=== PATIENT | male | born 1955 | race Caucasian/White ===

== ENCOUNTER 2024-02-17 16:35 | Inpatient (IN) | payer MEDICARE, MEDICAID ==
[~2024-02-17] VITALS: Ht 170.2 cm; Wt 129.6 kg
[2024-02-17] VITALS (15 sets, daily range): BP systolic 127–152; BP diastolic 58–117
--- NOTE | 2024-02-17 16:35 | NUR ---
PATIENT TO ER ROOM 3 WITH STEADY GAIT.
[2024-02-17 17:07] LABS: BASO% 0.6 % (0-3); HEMATOCRIT 36.5 % (39.0-50.0); HEMOGLOBIN 10.9 g/dl (14.0-18.0); IMMATURE GRANULOCYTES 0.6 % (0.0-5.0); LYMPH% 30.6 % (15-41); MEAN CELL VOLUME 94.6 fL CALC (80.0-100.0); MEAN CORPUSCULAR HGB 28.2 pG CALC (26.0-32.0); MEAN CORPUSCULAR HGB CONC 29.9 g/dL CAL (32.0-36.0); MONO% 10.1 % (2-13); NEUT# 4.76 thou/uL (1.82-7.42); NEUT% 55.1 % (42-76); RED BLOOD COUNT 3.86 mill/uL (4.70-6.10); RED CELL DISTRI WIDTH 15.2 % (11.5-15.5)
[2024-02-17 17:19] LABS: ALBUMIN 4.1 g/dL (3.2-5.0); ALKALINE PHOSPHATASE 69 u/l (38-126); ANION GAP 11 (6-22 (CALC)); BILIRUBIN, TOTAL 0.4 mg/dL (0.2-1.3); BUN 49 mg/dL (8-23); BUN/CREATININE RATIO 20 (12-20 (CALC)); CARBON DIOXIDE 26 mmol/l (22-30); CHLORIDE 104 mmol/l (95-108); CREATININE 2.4 mg/dL (0.7-1.3); ESTIMATED GFR 29 ML/MIN (>=90 (CALC)); POTASSIUM 4.3 mmol/l (3.5-5.1); SGOT/AST 30 u/l (19-48); SODIUM 136 mmol/l (137-146); TOTAL PROTEIN 7.8 g/dL (6.3-8.2)
[2024-02-17 17:24] LABS: INTERNATIONAL NORMALIZED RATIO 1.1 RATIO (0.7-1.3); PROTHROMBIN TIME 10.8 SECONDS (9.0-12.5)
--- NOTE | 2024-02-17 17:50 | NUR ---
PT RESTING WITH MONITOR IN PLACE. PT IN NO ACUTE DISTRESS. PT DENIES ANY NEEDS AT THIS TIME. PLAN OF CARE DISCUSSED WITH PT .
[2024-02-17] MEDS ORDERED: FUROSEMIDE 40 MG/4 ML SDV IV ONE (18:35)
--- NOTE | 2024-02-17 19:01 | NUR ---
PT RESTING WITH MONITOR IN PLACE. PT REMAINS STABLE , DENIES CHANGE IN STATUS. REPORT TO [facility].
[2024-02-17] MEDS ORDERED: ACETAMINOPHEN 325 MG/TAB PO PRN (19:30)
[2024-02-17] MEDS ORDERED: AZITHROMYCIN 500 MG in SODIUM CHLORIDE 0.9% 250 ML IV SCH (19:30)
[2024-02-17] MEDS ORDERED: MAGNESIUM HYDROXIDE 30 ML UDC PO PRN (19:30)
[2024-02-17] MEDS ORDERED: INSULIN DETEMIR 100 UNITS/ML SC SCH (21:00)
[2024-02-17] MEDS ORDERED: INSULIN LISPRO 100 UNITS/ML ML SC SCH (21:00)
[2024-02-17] MEDS ORDERED: methylPREDNISolone Sod Succ 40 MG/ML SDV IV SCH (21:00)
--- NOTE | 2024-02-17 21:50 | NUR ---
REPORT GIVEN TO LOYDA RN AND PT AWAITING TRANSPORT TO [facility]. CALL LIGHT WITHIN REACH AND PT HAS NO NEEDS OR CONCERNS.
[2024-02-17] MEDS ORDERED: Heparin SODIUM (Porcine) 5,000 UNITS/ML SDV SC SCH (22:00)
--- NOTE | 2024-02-17 22:05 | NUR ---
PT TRANSPORTED TO [facility] AT THIS TIME VIA WHEELCHAIR AT THIS TIME.
--- NOTE | 2024-02-17 22:24 | NUR ---
PT ARRIVED TO [facility] ROOM 273 VIA WHEELCHAIR NO DISTRESS NOTED ON ASSESSMENT. IV SITE FLUSHED AND ABX STARTED. PT HAS A COUGH PRODUCTIVE SMALL AMOUNT OF WHITE THICK SPUTUM LUNGS CLEAR. VS WNL ON NC 2L WHICH IS HIS HOME O2. PT HAS A DISTENDED FIRM ABD. BLE EDEMA SLIGHTLY RED WITH SCABS WORST ON THE RIGHT. PT STATED THIS HAS BEEN GOING ON FOR SEVERAL MONTHS. PT STATED THAT HE WAS SEEN AT THE [facility] BUT THAT HE LEFT AMA SINCE HE FELT HE WASN'T GETTING ANY BETTER WITH THE TREATMENT HE WAS RECEIVING. PT ABLE TO AMBULATE WITHOUT ASSISTANCE BUT STATED HE HAD A FALL IN THE LAST THREE MONTHS DUE TO TRIPPING. NURSE EXPLAINED TO BED THE NEED TO HAVE A BED ALARM AND EXTREA PRECAUTIONS TO PREVENT FALLS. PT REFUSED FOR A BED ALARM TO BE USED. CALL LIGHT WITHIN REACH. PT STATED UNDERSTANDING ON HOW TO USE IT. HEART MONITOR ON SR 61. PLAN OF CARE ONGOING.
[2024-02-17] MEDS ORDERED: IPRATROPIUM-Albuterol 0.5MG-2.5MG/3 ML NEB SCH (23:00)
[2024-02-17] MEDS ORDERED: FUROSEMIDE 40 MG/4 ML SDV ONE (23:21)
[2024-02-17] MEDS ORDERED: FUROSEMIDE 40 MG/4 ML SDV IV SCH (23:30)
--- NOTE | 2024-02-18 01:20 | NUR ---
PT AMBULATING IN ROOM NURSE PROVIDED TYLENOL PER PT REQUEST. CALL LIGHT WITHIN REACH. PLAN OF CARE ONGOING.
--- NOTE | 2024-02-18 04:00 | NUR ---
PT SITTING ON SIDE OF BED. ASKED NURSE TO ADD EXTENSION TO O2 TUBING. PT ASK TO REMOVE HEART MONITOR. NURSE EDUCATED PT ON THE IMPORTANCE OF KEEP IT ON. PT STATED UNDERSTANDING. CALL LIGHT WITHIN REACH. PLAN OF CARE ONGOING. GAVE SNACKS AND ORAL FLUIDS.
[2024-02-18 04:06] VITALS: BP 126/49
--- NOTE | 2024-02-18 04:35 | NUR ---
PT STATED HE DOES NOT WANT TO KEEP HIS TELE MONITOR ON. PT WAS EDUCATED AND ENCOURAGED TO KEEP IT ON. PT STILL REFUSED. RN NOTIFED. ER NOTIFIED @[id number].
--- NOTE | 2024-02-18 04:36 | NUR ---
PT DENIED TO STAND UP TO BE WEIGHED.
[2024-02-18 05:05] LABS: URINE BILIRUBIN - DIPSTICK Negative (NEGATIVE); URINE BLOOD DIPSTICK Negative (NEGATIVE); URINE GLUCOSE - DIPSTICK 500 mg/dL (NEGATIVE); URINE KETONE Negative (NEGATIVE); URINE LEUK ESTERASE Negative (NEGATIVE); URINE NITRITE - DIPSTICK Negative (Negative); URINE PH 5.5 (4.5-8.0); URINE PROTEIN - DIPSTICK Negative (NEG-TRACE); URINE UROBILINOGEN - DIPSTICK 0.2 E.U./dL (0.2)
[2024-02-18 05:06] LABS: URINE COLOR Yellow
[2024-02-18 06:00] LABS: BASO% 0.2 % (0-3); EOS% 0.5 % (0-8); HEMATOCRIT 38.8 % (39.0-50.0); IMMATURE GRANULOCYTES 0.6 % (0.0-5.0); LYMPH% 20.8 % (15-41); MEAN CELL VOLUME 93.9 fL CALC (80.0-100.0); MEAN CORPUSCULAR HGB 29.1 pG CALC (26.0-32.0); MEAN CORPUSCULAR HGB CONC 30.9 g/dL CAL (32.0-36.0); MONO% 1.8 % (2-13); NEUT# 6.31 thou/uL (1.82-7.42); NEUT% 76.1 % (42-76); RED BLOOD COUNT 4.13 mill/uL (4.70-6.10); RED CELL DISTRI WIDTH 15.3 % (11.5-15.5)
[2024-02-18] MEDS ORDERED: BUMETANIDE 1 MG/4 ML VIAL IV SCH (06:00)
[2024-02-18 06:13] LABS: ALBUMIN 4.3 g/dL (3.2-5.0); BILIRUBIN, TOTAL 0.4 mg/dL (0.2-1.3); CHOLESTEROL HDL RATIO 2.8 (<4.4 (CALC)); CREATININE 2.3 mg/dL (0.7-1.3); MAGNESIUM 2.3 mg/dL (1.6-2.3); POTASSIUM 4.6 mmol/l (3.5-5.1); TOTAL PROTEIN 8.1 g/dL (6.3-8.2)
--- NOTE | 2024-02-18 08:07 | NUR ---
MONIQUE A/O X3; ON 4L OF ; SITTING ON SIDE OF BED; DENIED ANY N/D/V AT THS TIME; PAIN IN LEGS RATE 3/10; TYLENOL FOR PAIN; NO S/S OF DISTRESS AT THIS TIME; IV SITE CLEAN AND INTACT, SALINE LCOKED WITH NO ISSUES; TELE LEADS ARE ATTACHED AND WORKING WITIH NO ISSUES; GLUCOSE WAS 221,4 UNITS GIVEN; CALL LIGHT WITHIN REACH,VERBALIZED UNDERSTANDING ON HOW TO USE, PERSONAL ITEMS WITHIN REACH, BED IN LOWEST POSTION
[2024-02-18 08:34] VITALS: BP 141/56
[2024-02-18] MEDS ORDERED: CLOPIDOGREL BISULFATE 75 MG/TAB TAB PO SCH (09:00)
[2024-02-18 09:14] VITALS: BP 141/56
[2024-02-18] MEDS ORDERED: BUMETANIDE1 MG PO (11:51)
[2024-02-18] MEDS ORDERED: METOPROLOL SUCC50 MG PO (11:51)
[2024-02-18] MEDS ORDERED: METFORMIN HCL1000 MG PO (12:02)
[2024-02-18] MEDS ORDERED: SPIRIVA RE1.25 MCG/A IN (12:05)
[2024-02-18] MEDS ORDERED: ALBUTEROL108 MCG/AC IN (12:06)
--- NOTE | 2024-02-18 12:41 | NUR ---
PATIENT A/O X3;; ON 4L ; BREATHING UNLABORED; NO S/S OF DISTRESS; DENIED ANY PAIN; DENIED ANY N/D/V AT THIS TIME; DENIED NEEDING ANYTHING; NO S/S OF DISTRESS; MEDICATION REVIWED; CALL LIGHT WITHIN REACH,VERBALIZED UNDERSTANDING ON HOW TO USE, PERSONAL ITEMS WITHIN REACH; BED IN LOWEST POSTION
[2024-02-18] MEDS ORDERED: CLOPIDOGREL75 MG PO (13:17)
[2024-02-18] MEDS ORDERED: GABAPENTIN600 MG PO (13:18)
[2024-02-18] MEDS ORDERED: BUMETANIDE0.5 M1 PO (13:19)
[2024-02-18] MEDS ORDERED: FUROSEMIDE20 MG PO (13:19)
[2024-02-18] MEDS ORDERED: TRESIBA FL200 UNIT/M SC (13:20)
[2024-02-18] MEDS ORDERED: FENOFIBRATE160 MG PO (13:20)
[2024-02-18] MEDS ORDERED: BUPROPION HYDRO75 MG PO (13:21)
[2024-02-18] MEDS ORDERED: PROTONIX20 MG PO (13:21)
[2024-02-18] MEDS ORDERED: VASCEPA1 GM PO (13:23)
[2024-02-18] MEDS ORDERED: POTASSIUM CHLO10 MEQ PO (13:24)
[2024-02-18] MEDS ORDERED: ATORVASTATIN CA80 MG PO (13:24)
[2024-02-18] MEDS ORDERED: JARDIANCE25 MG PO (13:25)
[2024-02-18] MEDS ORDERED: GLIMEPIRIDE4 MG PO (13:25)
[2024-02-18] MEDS ORDERED: AMLODIPINE BESY10 MG PO (13:25)
[2024-02-18] MEDS ORDERED: LOSARTAN POTAS100 MG PO (13:26)
[2024-02-18] MEDS ORDERED: PRAMIPEXOLE DI0.5 MG PO (13:27)
[2024-02-18] MEDS ORDERED: SYMBICORT 80-4.5MCG IN (13:28)
--- NOTE | 2024-02-18 15:38 | NUR ---
IV site discontinued, cath intact. No edema , no redness, voices no discomfort. Discharge instructions given. Patient verbalizes understanding of same. Discharged in stable condition via Ambulatory to Home with *Other. All belongings sent with pt.
== END 2024-02-18 15:31 | disposition home or self-care (01) | DRG 292 ==
LOC: ED 16:35 → ED-I 18:20 → MS2 18:50 → ED 18:50 → MS2 18:50 → ED-I 22:57 → MS2 02-18 10:17
PROVIDERS: Nurse Practitioner; ADMIT Student in an Organized Health Care Education/Training Program; ATTEND Student in an Organized Health Care Education/Training Program
DX: I11.0 Hypertensive heart disease with heart failure (principal); J44.1 Chronic obstructive pulmonary disease with (acute) exacerbation; J96.11 Chronic respiratory failure with hypoxia; N17.9 Acute kidney failure, unspecified; I50.9 Heart failure, unspecified; E11.40 Type 2 diabetes mellitus with diabetic neuropathy, unspecified; E11.65 Type 2 diabetes mellitus with hyperglycemia; K21.9 Gastro-esophageal reflux disease without esophagitis; E78.5 Hyperlipidemia, unspecified; Z99.81 Dependence on supplemental oxygen; Z72.0 Tobacco use; Z93.0 Tracheostomy status

== ENCOUNTER 2024-03-19 16:25 | Emergency (ER) | payer MEDICARE, MEDICAID ==
[~2024-03-19] VITALS: Ht 175.3 cm; Wt 129.0 kg
[2024-03-19] VITALS (9 sets, daily range): BP systolic 105–129; BP diastolic 46–55
[~2024-03-19 16:25] MED LIST: ALBUTEROL108 MCG/AC IN; AMLODIPINE BESY10 MG PO; ATORVASTATIN CA80 MG PO; BUMETANIDE0.5 M1 PO; BUMETANIDE1 MG PO; BUPROPION HYDRO75 MG PO; CLOPIDOGREL75 MG PO; FENOFIBRATE160 MG PO; FUROSEMIDE20 MG PO; GABAPENTIN600 MG PO; GLIMEPIRIDE4 MG PO; JARDIANCE25 MG PO; LOSARTAN POTAS100 MG PO; METFORMIN HCL1000 MG PO; METOPROLOL SUCC50 MG PO; POTASSIUM CHLO10 MEQ PO; PRAMIPEXOLE DI0.5 MG PO; PROTONIX20 MG PO; SPIRIVA RE1.25 MCG/A IN; SYMBICORT 80-4.5MCG IN; TRESIBA FL200 UNIT/M SC; VASCEPA1 GM PO
[2024-03-19 17:24] LABS: BASO% 0.6 % (0-3); HEMATOCRIT 32.8 % (39.0-50.0); HEMOGLOBIN 9.7 g/dl (14.0-18.0); IMMATURE GRANULOCYTES 0.5 % (0.0-5.0); LYMPH% 29.9 % (15-41); MEAN CELL VOLUME 93.4 fL CALC (80.0-100.0); MEAN CORPUSCULAR HGB 27.6 pG CALC (26.0-32.0); MEAN CORPUSCULAR HGB CONC 29.6 g/dL CAL (32.0-36.0); MONO% 9.6 % (2-13); NEUT# 4.38 thou/uL (1.82-7.42); NEUT% 55.4 % (42-76); RED BLOOD COUNT 3.51 mill/uL (4.70-6.10); RED CELL DISTRI WIDTH 15.6 % (11.5-15.5)
[2024-03-19 17:38] LABS: ALBUMIN 3.8 g/dL (3.2-5.0); ALKALINE PHOSPHATASE 73 u/l (38-126); ANION GAP 12 (6-22 (CALC)); BILIRUBIN, TOTAL 0.3 mg/dL (0.2-1.3); BUN/CREATININE RATIO 24 (12-20 (CALC)); CARBON DIOXIDE 28 mmol/l (22-30); CHLORIDE 102 mmol/l (95-108); CREATININE 2.6 mg/dL (0.7-1.3); ESTIMATED GFR 26 ML/MIN (>=90 (CALC)); POTASSIUM 5.1 mmol/l (3.5-5.1); SGOT/AST 21 u/l (19-48); SODIUM 137 mmol/l (137-146); TOTAL PROTEIN 6.9 g/dL (6.3-8.2)
[2024-03-19 17:43] LABS: BUN 62 mg/dL (8-23)
[2024-03-19 18:54] LABS: URINE BILIRUBIN - DIPSTICK Negative (NEGATIVE); URINE BLOOD DIPSTICK Negative (NEGATIVE); URINE GLUCOSE - DIPSTICK >=1000 mg/dL (NEGATIVE); URINE KETONE Negative (NEGATIVE); URINE LEUK ESTERASE Negative (NEGATIVE); URINE NITRITE - DIPSTICK Negative (Negative); URINE PROTEIN - DIPSTICK Negative (NEG-TRACE); URINE SPECIFIC GRAVITY <=1.005; URINE UROBILINOGEN - DIPSTICK 0.2 E.U./dL (0.2)
[2024-03-19 18:58] LABS: URINE COLOR Yellow
[2024-03-19] MEDS ORDERED: METOLAZONE 2.5 MG/TAB PO ONE (19:10)
[2024-03-19] MEDS ORDERED: BUMETANIDE 1 MG/4 ML VIAL IV ONE (19:10)
== END 2024-03-19 20:08 | disposition home or self-care (01) ==
LOC: ED 16:25
PROVIDERS: Emergency Medicine
DX: R06.02 Shortness of breath (principal); R60.0 Localized edema; J44.9 Chronic obstructive pulmonary disease, unspecified; I11.0 Hypertensive heart disease with heart failure; I50.32 Chronic diastolic (congestive) heart failure; J96.11 Chronic respiratory failure with hypoxia; E11.40 Type 2 diabetes mellitus with diabetic neuropathy, unspecified; Z72.0 Tobacco use; E66.01 Morbid (severe) obesity due to excess calories; Z79.84 Long term (current) use of oral hypoglycemic drugs; Z79.4 Long term (current) use of insulin; Z68.41 Body mass index [BMI] 40.0-44.9, adult; Z99.81 Dependence on supplemental oxygen